=== PATIENT | female | born 1980 | race Caucasian/White ===

== ENCOUNTER 2025-03-16 10:52 | Emergency (ER) | payer OTHER, SELFPAY ==
--- NOTE | ~2025-03-16 | US_ITS ---
CLINICAL HISTORY: px behind L knee --- Additional Notes or Special Instructions: sent from to [facility] O DVT, bakers cyst Venous duplex ultrasound left lower extremity Comparison: None provided Findings: The visualized deep veins are fully compressible with normal Doppler color flow and spectral tracings. No popliteal cyst. IMPRESSION: 1. Negative for left lower extremity deep vein thrombosis. This document has been electronically signed by: Nik Solano MD on 03/16/2025 12:24:12
[2025-03-16 11:01] VITALS: BP 163/78; PULSE 68; RESP 14; TEMP 36.6; O2SAT 97; BMI 22.3
--- NOTE | 2025-03-16 11:23 | ED.GENADULT ---
HPI - General Adult General Chief complaint: Extremity Injury, Lower Stated complaint: ?blood clot in left leg Time Seen by Provider: 03/16/25 11:22 Source: patient, RN notes reviewed and old records reviewed Mode of arrival: ambulatory Limitations: no limitations History of Present Illness ED Provider: DOUG Brooks HPI narrative: 44 Year old female with medical history of GERD, Santana's esophagus, presents to the ED from urgent care due to 2 months of intermittent left leg pain. Patient states left leg behind the knee feels like a pressure, and at times can feel like a burning and ripping sensation of the musculature behind the knee. Patient states yesterday she went on a 20 minute hike with her dog, and had to limp after the hike due to a burning pain behind the knee. Patient reports she has been taking Aleve for the pain without effect. 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 Patient states she started this job approximately 2 months ago and leg pain correlates with this. Patient states she has been more sedentary with this job sitting frequently and is concerned for clot. Patient does have tobacco history, has recently switched to vaping. Denies recent hospitalization, travel, or exogenous hormone use. Denies chest pain, shortness of breath, difficulty breathing, abdominal pain, nausea, vomiting MD complaint: L leg pain Related Data Allergies Allergy/AdvReac Type Severity Reaction Status Date / Time bee pollen (BEE STINGS) Allergy Unknown UNKNOWN Verified 03/16/25 11:02 Review of Systems Review of Systems: CONST: Negative for fever, body aches and chills. HENT: Negative for neck pain/stiffness, headache, congestion, sore throat, swelling. EYES: Negative for discharge/pain or vision changes. RESP: Negative for cough/hemoptysis and shortness of breath. CV: Negative chest pain, difficulty breathing, palpitations. ABD: Negative pain, nausea, vomiting. : Negative increase frequency, dysuria, blood in urine or stool. MUSC: Negative for muscle aches, edema. POS L leg posterior knee pain SKIN: Negative rash, lesions/sores. NEURO: Negative headache, dizziness, weakness. Yes all other systems are reviewed and are negative PMFSH Past Medical History Attestation statement: The following information was validated with the patient. Source: old records reviewed and nursing notes reviewed Social History Social History Smoked in Last 30 Days: No Advance Directives: No Advance Directives Information Provided: No Do you have a plan to hurt others: No Plan Physical Exam ED Vital Signs: Vital Signs - 24 hr 03/16/25 11:01 Temperature 97.8 F Pulse Rate 68 Respiratory Rate 14 Blood Pressure 163/78 H Pulse Oximetry 97 Oxygen Delivery Method Room Air BMI result Body Mass Index 22.3 GENERAL APPEARANCE: ?AxOx4, generally well-appearing, no acute distress. HEENT: ?NC, AT. MMM. EOMI, clear conjunctiva, oropharynx clear. NECK: ?Supple without lymphadenopathy.? No stiffness or restricted ROM. HEART:? Normal rate and regular rhythm, normal S1/S1, no m/r/g LUNGS:? CTAB, moving air well. No crackles or wheezes are heard. ABDOMEN: ?Soft, nontender, nondistended with good bowel sounds heard. BACK: No CVAT, no obvious deformity. EXTREMITIES: ?Without cyanosis, clubbing or edema. B/L LE's without erythema, edema, warmth, left lower extremity with full ROM, SILT, DP pulses 2+, no pain with palpation of the left calf, Homans sign negative. TTP of hamstring musculature including sartorius and semimembranousus areas of the medial L leg. NEUROLOGICAL: ?Grossly nonfocal. Alert and oriented, moving all 4 extremities. Observed to ambulate with normal gait. Skin: ?Warm and dry without any rash. 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 Yesterday patient went on 20 minute hike with dog and was limping due to a burning and pulling sensation behind the knee prompting her to present to urgent care. Patient was sent to urgent care for further evaluation. Risk factors reviewed for DVT: Patient has history of tobacco use, is currently vaping. No exogenous hormone use. No history of DVT or PE, no recent hospitalization, no recent prolonged travel. No shortness of breath, difficulty breathing, no pain with palpation of L calf, homans sign negative. DVT is less likely, however patient sent from for further eval of DVT. On physical exam, B/L LE's without erythema, edema, warmth, left lower extremity with full ROM, SILT, DP pulses 2+, no pain with palpation of the left calf, Homans sign negative. TTP of hamstring musculature including sartorius and semimembranousus areas of the medial L leg. Plan: US venous Doppler of L leg I offered patient IM injection of Toradol for pain management, however, patient states she is not experiencing much pain at this time rating pain 2/10 and does not feel she needs medication. Course 12:56- U/S venous duplex of the left lower extremity negative for DVT or popliteal cyst. Patient with TTP of hamstring musculature without ecchymosis, or muscle bulging, patient able to bear weight and ambulate, this is most likely referred musculoskeletal pain. I counseled patient to alternate 500 mg Tylenol, 400 mg of ibuprofen every 6 hours, and use ice/and/or heat to the area. I counseled patient to follow up with her primary care doctor to ensure resolution of symptoms. Patient is in agreement with the plan. Differential Diagnosis Differential Diagnoses: The differential diagnosis associated with the presentation includes DVT Rhodes's cyst Musculoskeletal pain Hamstring injury Admission/Observation Consideration of admission/observation: Escalation of care including admission/observation considered Independent Interpretation I performed an independent interpretation of an: Ultrasound Interpretation: I independently interpreted the ultrasound of the left lower extremity, which was negative for DVT or popliteal cyst, I agree with the radiologist's interpretation Radiology Impression Discussion of test interpretation with radiology: I have reviewed the radiologist's reading. Radiologist Impression: U/S venous Doppler left lower extremity Findings: The visualized deep veins are fully compressible with normal Doppler color flow and spectral tracings. No popliteal cyst. IMPRESSION: 1. Negative for left lower extremity deep vein thrombosis. This document has been electronically signed by: Nik Solano MD on 03/16/2025 12:24:12 Dictated By: Nik Solano MD Signed By: <Electronically signed by Nik Solano MD in OV> 03/16/25 1221 External Record Review External record reviewed: Inpatient record, Office record and Outpatient record Prescription Management I considered prescription management with: Other (Toradol) I discussed IM injection of Toradol the patient however she does not feel that her pain warrants need for medication at this time. Rates pain as 2/10 and states it is more uncomfortable than true pain. Chronic Conditions Patient?s care impacted by: Other (GERD, Santana's esophagus) Discharge Plan Discharge Clinical Impression: Hamstring strain Patient Disposition: Home, Self-Care Instructions: Muscle Strain (DC), P.R.I.C.E. Treatment (ED) Additional Instructions: You were evaluated in the ED due to left leg pain. The ultrasound of your left leg was negative for deep vein thrombosis, or cyst behind the knee. Your physical exam shows that you have pain in the left hamstring. At this time I believe your symptoms are most likely due to hamstring strain. To manage his pain at home you can take 500 mg Tylenol, and 400 mg of ibuprofen every 6 hours. Additionally you can heat and/or ice the area whatever you prefer and brings the most relief. I encourage you to follow up with your PCP to ensure resolution of symptoms, as you may need additional imaging like MRI for further evaluation. Please return to the emergency department if you experience fevers over 100.4?, worsening pain to the left leg, bulging and or bruising the left leg, redness of the left leg, swelling to the left leg, chest pain, shortness of breath, difficulty breathing or any new/worsening/concerning symptoms. Print Language: [place]
--- OUTSIDE RECORDS SUMMARY | 2025-03-16 11:33 | XMS_ITS ---
Author Name [facility] Organization Unknown Encounters Encounter Type Encounter Reason Primary Diagnosis Location Date Ambulatory [facility] 01/09/2025 Care Team Organization Name Specialty Phone Email Start Date End Da [facility] 01/12
--- OUTSIDE RECORDS SUMMARY | 2025-03-16 11:33 | XMS_ITS | Clinical Summary ---
Author Organization [facility] Address [address] [place] [address] Care Team Providers Care Personnel Clerk Name Role Phone Unavailable Primary Care Provider Unavailabl e Social History Tobacco Use Types Packs/Day Years Used Date Smoking Tobacco: Never Assessed Comments Unknown Sex and Gender Information Value Date Recorded Sex Assigned at Not on file Legal Sex Female 4:10 PM EST Gender Identity Not on file Sexual Orientation Not on file Plan of Treatment Health Maintenance Due Date Last Done Comments Hepatitis C Screening 1978 Pap Smear 1994 DTaP/Tdap/Td (1 - Tdap) 1996 Hep B (1 of 3 - 19+ 3-dose series) 1997 Mammogram/Breast Imaging 2018 COVID-19 Vaccine (2024-2 6 season) 2025 Influenza (#1) 2025 Zoster (Shingrix) (1 of 2) 2028 HPV Vaccine (No Doses Required) Completed Hep A Aged Out No longer eligi ble based on patient's age to complete this topic Hib Aged Out No longer eligi ble based on patient's age to complete this topic Meningococcal ACWY Aged Out No longer eligible based on patient's age to complete this topic Pneumococcal Aged Out No longer eligi ble based on patient's age to complete this topic
[2025-03-16 13:24] VITALS: BP 135/75; PULSE 70; RESP 14; TEMP 36.6; O2SAT 99
== END 2025-03-16 13:26 | disposition home or self-care (01) ==
PROVIDERS: Emergency Provider Emergency Medicine; PCP Nurse Practitioner Family
DX: S76.312A Strain of muscle, fascia and tendon of the posterior muscle group at thigh level, left thigh, initial encounter (principal); X58.XXXA Exposure to other specified factors, initial encounter; Y93.01 Activity, walking, marching and hiking; Y92.9 Unspecified place or not applicable; Y99.9 Unspecified external cause status; M79.605 Pain in left leg
CPT/HCPCS: 93971; 99284

== ENCOUNTER → 2025-03-16 11:44 | Outpatient (BNV) | payer OTHER, SELFPAY | PROVIDERS: Emergency Provider Emergency Medicine; PCP Nurse Practitioner Family; Visit Provider Radiology Vascular & Interventional Radiology | DX: M25.562 Pain in left knee (principal) | CPT/HCPCS: 93971 ==